=== PATIENT | male | born 1995 | race African-American/Black ===

== ENCOUNTER 2024-12-18 03:42 | Emergency (ER) | payer MEDICAID, OTHER ==
[~2024-12-18] VITALS: Ht 180.3 cm; Wt 90.0 kg
[2024-12-18 03:50] VITALS: O2SAT 100
[2024-12-18] MEDS: KETOROLAC 15MG/ML VIAL IM ONE (04:19)
[2024-12-18] MEDS ORDERED: BO1 TP (04:24)
[2024-12-18 04:30] VITALS: BP 140/84; PULSE 80; RESP 16; TEMP 36.9; O2SAT 100
== END 2024-12-18 04:34 | disposition home or self-care (01) ==
LOC: ER 03:47
DX: S90.812A Abrasion, left foot, initial encounter (principal); X58.XXXA Exposure to other specified factors, initial encounter; Y93.89 Activity, other specified; Y92.89 Other specified places as the place of occurrence of the external cause; Y99.8 Other external cause status
CPT/HCPCS: 96372; 99283; J1885; Z7610

== ENCOUNTER 2024-12-22 04:46 | Emergency (ER) | payer OTHER ==
[~2024-12-22] VITALS: Ht 175.3 cm; Wt 113.0 kg
[~2024-12-22 04:46] MED LIST: BO1 TP
[2024-12-22 04:48] VITALS: O2SAT 99
[2024-12-22 05:14] LABS: BASOPHILS % 0.4 % (0.0-2.0); EOSINOPHILS % 3.4 % (0.0-5.0); HEMATOCRIT. 42.1 % (42.0-52.0); HEMOGLOBIN. 13.9 g/dL (14.0-18.0); LYMPHOCYTES % 16.6 % (20.0-50.0); MEAN PLATELET VOLUME 8.8 fl (7.4-10.4); MONOCYTES % 9.1 % (2.0-8.0); NEUTROPHILS % 70.5 % (40.0-76.0); PLATELET 238 x1000/uL (130-400); RED BLOOD CELL COUNT 4.76 mill/uL (4.7-6.1); RED CELL DISTRIBUTION WIDTH 14.4 % (11.6-14.6)
[2024-12-22 05:27] LABS: CREATININE 0.8 mg/dL (0.6-1.3); UREA NITROGEN BLOOD 9 mg/dL (9-23)
[2024-12-22 05:29] LABS: ASPARTATE AMINOTRANSFERASE 31 IU/L (<34); BILIRUBIN DIRECT 0.2 mg/dL (<=3.0); BILIRUBIN TOTAL 0.4 mg/dL (0.1-1.0); PROTEIN TOTAL 6.8 g/dL (6.0-8.3)
[2024-12-22 05:38] LABS: CLARITY URINE CLEAR (CLEAR); COLOR URINE YELLOW (YELLOW); GLUCOSE URINE NEGATIVE (NEGATIVE); KETONES URINE TRACE (NEGATIVE); LEUKOCYTE ESTERASE URINE NEGATIVE (NEGATIVE); NITRITE URINE NEGATIVE (NEGATIVE); OCCULT BLOOD URINE NEGATIVE (NEGATIVE); PH URINE 7.0 (4.5-8.0); PROTEIN URINE NEGATIVE (NEGATIVE); SPECIFIC GRAVITY URINE 1.008 (1.005-1.030); UROBILINOGEN URINE 1.0 E.U./dL (0.2-1.0)
[2024-12-22 09:34] VITALS: BP 133/66; PULSE 79; RESP 20; TEMP 36.9; O2SAT 99
[2024-12-22] MEDS ORDERED: DOXY100T2 MT (11:39)
[2024-12-22 14:28] LABS: *AMPHETAMINES SCREEN URINE NEGATIVE (NEGATIVE)
[2024-12-22 14:29] LABS: *BARBITURATES SCREEN URINE NEGATIVE (NEGATIVE); *BENZODIAZEPINES SCREEN URINE NEGATIVE (NEGATIVE); *COCAINE SCREEN URINE NEGATIVE (NEGATIVE); CANNABINOID URINE SCREEN PRESUMPTIVE POSITIVE (NEGATIVE); ECSTASY MDMA SCREEN URINE NEGATIVE (NEGATIVE); METHADONE URINE SCREEN NEGATIVE (NEGATIVE); OPIATES URINE SCREEN NEGATIVE (NEGATIVE); PHENCYCLIDINE URINE SCREEN NEGATIVE (NEGATIVE)
== END 2024-12-22 09:35 | disposition home or self-care (01) ==
LOC: ER 04:46
DX: R45.851 Suicidal ideations (principal); F10.90 Alcohol use, unspecified, uncomplicated; F12.90 Cannabis use, unspecified, uncomplicated; F20.9 Schizophrenia, unspecified; F31.9 Bipolar disorder, unspecified; Z79.899 Other long term (current) drug therapy; Z20.822 Contact with and (suspected) exposure to COVID-19; Y90.9 Presence of alcohol in blood, level not specified
CPT/HCPCS: 36415; 80048; 80076; 80305; 80307; 80320; 80329; 81003; 85025; 87426; 99285; G0480

== ENCOUNTER 2024-12-22 09:46 | Emergency (ER) | payer OTHER ==
[~2024-12-22] VITALS: Ht 180.3 cm; Wt 99.0 kg
[2024-12-22 09:51] VITALS: O2SAT 99
[2024-12-22 09:52] VITALS: BP 152/81; PULSE 82; RESP 16; TEMP 36.7; O2SAT 100
[2024-12-22] MEDS: LIDOCAINE HCL 1% 20ML VIAL INFIL ONE (10:37)
[2024-12-22] MEDS: CEFTRIAXONE SODIUM 500MG VIAL IM ONE (10:37)
[2024-12-22] MEDS ORDERED: DOXY100T2 MT (11:39)
[2024-12-22 12:25] LABS: CLARITY URINE CLEAR (CLEAR); COLOR URINE YELLOW (YELLOW); GLUCOSE URINE NEGATIVE (NEGATIVE); KETONES URINE NEGATIVE (NEGATIVE); LEUKOCYTE ESTERASE URINE NEGATIVE (NEGATIVE); NITRITE URINE NEGATIVE (NEGATIVE); OCCULT BLOOD URINE NEGATIVE (NEGATIVE); PH URINE 8.0 (4.5-8.0); PROTEIN URINE NEGATIVE (NEGATIVE); SPECIFIC GRAVITY URINE 1.007 (1.005-1.030); UROBILINOGEN URINE 1.0 E.U./dL (0.2-1.0)
[2024-12-24 13:08] LABS: CHLAMYDIA TRACHOMATIS NAA Negative (Negative); NEISSERIA GONORRHOEAE NAA Negative (Negative)
== END 2024-12-22 12:02 | disposition home or self-care (01) ==
LOC: ER 09:46
DX: K14.0 Glossitis (principal); F20.9 Schizophrenia, unspecified; F31.9 Bipolar disorder, unspecified; Z11.3 Encounter for screening for infections with a predominantly sexual mode of transmission
CPT/HCPCS: 87491; 87591; 81003; 86592; 36415; 96372; 99283; J0696; J2003; Z7610